=== PATIENT | male | born 1970 | race Caucasian/White ===

== ENCOUNTER → 2016-03-31 | Outpatient (CLI) | payer OTHER ==
--- NOTE | 2016-03-31 15:17 | RAD ---
EXAM DESCRIPTION: XR CHEST 2 VIEWS CLINICAL HISTORY: TB COMPARISON: June 28, 2015 TECHNIQUE: PA/lateral FINDINGS: There is no cardiac or pulmonary abnormality. The lungs are clear. There is no effusion. IMPRESSION: No radiographic evidence of pulmonary tuberculosis. Electronically signed by: Malcolm Otoole MD 03/31/2016 15:14
== END ==
LOC: RAD 13:59
DX: R76.11 Nonspecific reaction to tuberculin skin test without active tuberculosis (principal)

== ENCOUNTER → 2018-03-29 | Outpatient (CLI) | payer OTHER ==
--- NOTE | 2018-03-29 15:52 | RAD ---
EXAM DESCRIPTION: Chest,2 Views CLINICAL HISTORY: Z11.11 COMPARISON: March 31, 2016 FINDINGS: The cardiomediastinal silhouette is unremarkable. There is no airspace consolidation or pleural effusion. The lungs are hyperinflated. Bronchovascular markings are within normal limits. There is no pneumothorax or acute fracture. IMPRESSION: Emphysema without acute intrathoracic abnormality. Electronically signed by: Manuel Ortiz MD 03/29/2018 3:51 PM [facility]
== END ==
LOC: RAD 13:29
PROVIDERS: ATTEND Family Medicine
DX: Z11.1 Encounter for screening for respiratory tuberculosis (principal); J43.9 Emphysema, unspecified